=== PATIENT | female | born 1970 | race African-American/Black ===

== ENCOUNTER 2022-04-27 15:14 | Emergency (ER) | payer OTHER ==
[2022-04-27] MEDS ORDERED: Oxymetazoline HCl 0.05% (30 ML BOT) ONE (17:22)
[2022-04-27] MEDS ORDERED: predniSONE 20 MG TAB ONE (17:22)
[2022-04-27] MEDS ORDERED: Fluticasone Propionate Nasal Spray 16 gm Bottle NASAL SCH (17:30)
[2022-04-27 18:52] LABS: SARS-CoV-2 NAA Rapid Test Not Detected (NotDetected)
== END 2022-04-27 19:15 | disposition home or self-care (01) ==
LOC: ERS 15:14
DX: J01.90 Acute sinusitis, unspecified (principal); J45.901 Unspecified asthma with (acute) exacerbation; H65.93 Unspecified nonsuppurative otitis media, bilateral; I10 Essential (primary) hypertension; Z79.899 Other long term (current) drug therapy; F17.210 Nicotine dependence, cigarettes, uncomplicated; Z79.82 Long term (current) use of aspirin
CPT/HCPCS: 71045; 94640; 99406; J7512; J7611